=== PATIENT | male | born 1950 | race Caucasian/White ===

== ENCOUNTER 2023-02-01 06:19 | Day surgery (SDC) | payer MEDICARE, BC ==
[2023-01-28 15:41] VITALS: BMI 25.0
[2023-02-01 08:09] LABS: Hemoglobin 15.4 g/dL (13.5-17.5)
[2023-02-01 08:26] LABS: Anion Gap 13 mmol/L (10-20); BUN (Urea Nitrogen) 14 mg/dL (8.4-25.7); Calc. Creatinine Clearance 65 mL/min (70-130); Carbon Dioxide 22 mmol/L (23-31); Chloride 106 mmol/L (98-107); Estimated GFR 77; Glucose 94 mg/dL (83-110); Potassium 4.1 mmol/L (3.5-5.1); Sodium 137 mmol/L (136-145)
[2023-02-01] MEDS ORDERED: PROPOFOL 40 ML ONE (09:14)
[2023-02-01] MEDS ORDERED: Lidocaine 2% PF 5 ML VIAL ONE (09:19)
[2023-02-01] MEDS ORDERED: Lidocaine 1% PF 5 ML VIAL ONE (10:46)
== END 2023-02-01 10:35 | disposition home or self-care (01) ==
LOC: CSHSDC 06:19
PROVIDERS: ATTEND Otolaryngology Otolaryngic Allergy
PROC: 00J Central Nervous System and Cranial Nerves, Inspection (ICD-10-PCS; principal; 2023-02-01)
DX: G47.33 Obstructive sleep apnea (adult) (pediatric) (principal); F32.A Depression, unspecified; K21.9 Gastro-esophageal reflux disease without esophagitis; F41.9 Anxiety disorder, unspecified; I25.2 Old myocardial infarction; Z87.891 Personal history of nicotine dependence; Z79.899 Other long term (current) drug therapy; Z88.5 Allergy status to narcotic agent; Z88.8 Allergy status to other drugs, medicaments and biological substances
CPT/HCPCS: 80048; 85014; 85018; 93005; 93010; J2001; J2704

== ENCOUNTER 2023-04-12 06:29 | Day surgery (SDC) | payer MEDICARE, BC ==
[2023-04-11 11:44] VITALS: BMI 22.8
[2023-04-12] MEDS ORDERED: Acetaminophen 500 MG TAB ONE (07:45)
[2023-04-12 08:02] LABS: Hemoglobin 16.8 g/dL (13.5-17.5)
[2023-04-12 08:09] LABS: Anion Gap 12 mmol/L (10-20); BUN (Urea Nitrogen) 14 mg/dL (8.4-25.7); Calc. Creatinine Clearance 56 mL/min (70-130); Calcium 9.4 mg/dL (7.8-10.44); Carbon Dioxide 25 mmol/L (23-31); Chloride 105 mmol/L (98-107); Estimated GFR 69; Glucose 110 mg/dL (83-110); Potassium 4.5 mmol/L (3.5-5.1); Sodium 137 mmol/L (136-145)
[2023-04-12] MEDS ORDERED: Midazolam HCl 2 mg/2 ml Vial ONE (08:24)
[2023-04-12] MEDS ORDERED: Ondansetron PF 4 MG/2 ML Vial ONE (08:24)
[2023-04-12] MEDS ORDERED: Lidocaine 1% PF 5 ML VIAL ONE (08:24)
[2023-04-12] MEDS ORDERED: PROPOFOL 20 ML ONE (08:24)
[2023-04-12] MEDS ORDERED: Rocuronium Bromide 10 MG/ML (10ML VIAL) ONE (08:24)
[2023-04-12] MEDS ORDERED: Fentanyl 250 MCG/5 ML VIAL ONE (08:24)
[2023-04-12] MEDS ORDERED: Dexamethasone 20 MG/5 ML VIAL ONE (08:25)
[2023-04-12] MEDS ORDERED: PHENYLEPHRINE-NS 100 MCG/ML 10 ML SYRINGE ONE (09:13)
[2023-04-12] MEDS ORDERED: CEFAZOLIN 1 GM VIAL ONE (09:36)
[2023-04-12] MEDS ORDERED: Vasopressin 20 UNITS/ML VIAL ONE (10:16)
[2023-04-12] MEDS ORDERED: Neomycin-Polymyxin 1 ML AMP ONE (10:39)
[2023-04-12] MEDS ORDERED: ePHEDrine Sulfate 50 MG/10 ML VIAL ONE (10:57)
== END 2023-04-12 13:35 | disposition home or self-care (01) ==
LOC: CSHSDC 06:29
PROVIDERS: ATTEND Otolaryngology Otolaryngic Allergy
PROC: 05H Upper Veins, Insertion (ICD-10-PCS; principal; 2023-04-12)
DX: G47.33 Obstructive sleep apnea (adult) (pediatric) (principal); F32.A Depression, unspecified; I10 Essential (primary) hypertension; K21.9 Gastro-esophageal reflux disease without esophagitis; E78.5 Hyperlipidemia, unspecified; I35.0 Nonrheumatic aortic (valve) stenosis; G40.909 Epilepsy, unspecified, not intractable, without status epilepticus; Z90.49 Acquired absence of other specified parts of digestive tract; Z79.82 Long term (current) use of aspirin; Z79.899 Other long term (current) drug therapy; Z87.891 Personal history of nicotine dependence; Z91.011 Allergy to milk products; Z88.8 Allergy status to other drugs, medicaments and biological substances; Z91.048 Other nonmedicinal substance allergy status; Z68.23 Body mass index [BMI] 23.0-23.9, adult
CPT/HCPCS: 64582; 70360; 80048; 85014; 85018; C1820; C1898; C1787; J0690; J1100; J2250; J2405; J2704; J3010